=== PATIENT | male | born 1955 | race American Indian/Alaskan Native ===

== ENCOUNTER 2016-11-28 16:45 | Emergency (ER) | payer OTHER ==
[2016-11-28 16:57] VITALS: BP 138/106
== END 2016-11-29 04:55 | disposition left against medical advice (07) ==
LOC: ED 16:45
DX: R51 Headache (principal); R50.9 Fever, unspecified; M79.1 Myalgia; Z53.21 Procedure and treatment not carried out due to patient leaving prior to being seen by health care provider